=== PATIENT | female | born 1940 | race Caucasian/White ===

== ENCOUNTER 2017-04-01 11:45 | Outpatient (CLI) | payer MEDICARE, OTHER ==
--- NOTE | 2017-04-02 13:17 | Mammography Report ---
DIGITAL SCREENING MAMMOGRAM: 04/01/2017 CLINICAL INDICATION: A 77-year-old for screening. COMPARISON: 02/2016, 02/2015, 01/2014, 12/2012, 10/2011, 10/2010, 10/2009 TECHNIQUE: Routine CC and MLO projections were obtained of the breasts. FINDINGS: Parenchymal tissue within both breasts is heterogeneously dense, which may lower the sensi tivity of mammography; however, there are no dominant masses, suspicious microcalcifications, or seco ndary signs of malignancy. In comparison to the previous studies, there are no significant changes. ASSESSMENT: NO MAMMOGRAPHIC EVIDENCE OF MALIGNANCY. NO SIGNIFICANT INTERVAL CHANGES. RECOMMENDATION: Screening mammography is recommended annually. BIRADS category 1 - negative. STANDARD QUALIFYING STATEMENTS 1. This examination was reviewed with the aid of Computed-Aided Detection (CAD). 2. A negative or benign imaging report should not delay biopsy if clinically suspicious findings are present. Consider surgical consultation if warranted. More than 5% of cancers are not identified by i maging. 3. Dense breasts may obscure an underlying neoplasm. JOB #: [id number] EXT JOB #:[id number]
== END 2017-04-01 11:46 | disposition home or self-care (01) ==
LOC: DI.S 11:45
PROVIDERS: ATTEND Physician Assistant Medical
DX: Z12.31 Encounter for screening mammogram for malignant neoplasm of breast (principal)
CPT/HCPCS: 77067

== ENCOUNTER 2017-05-06 07:38 | Outpatient (CLI) | payer MEDICARE, OTHER ==
[2017-05-06 12:22] LABS: BASOPHILS % (AUTO) 0.6 %; EOSINOPHILS # (AUTO) 0.3 10^3/uL (0.0-0.7); EOSINOPHILS % (AUTO) 5.8 %; HCT - HEMATOCRIT 43.8 % (37.0-47.0); HGB - HEMOGLOBIN 14.9 g/dL (12.0-16.0); LYMPHOCYTES # (AUTO) 1.2 10^3/uL (1.5-3.5); LYMPHOCYTES % (AUTO) 24.5 %; MEAN CORPUSCULAR HEMOGLOBIN 32.4 pg (27.0-31.0); MEAN CORPUSCULAR HGB CONC 34.1 g/dL (32.0-36.0); MEAN PLATELET VOLUME 8.4 fL (7.9-10.8); MONOCYTES # (AUTO) 0.4 10^3/uL (0.0-1.0); MONOCYTES % (AUTO) 8.6 %; NEUTROPHILS % (AUTO) 60.5 %; NUCLEATED RED BLOOD CELLS AUTO 0.2 /100WBC; RED CELL DISTRIBUTION WIDTH 12.5 % (12.0-15.0); UNCORRECTED WHITE BLOOD COUNT 4.9 x10^3/uL; WHITE BLOOD COUNT 4.9 x10^3/uL (4.8-10.8)
[2017-05-06 12:39] LABS: BILIRUBIN,URINE NEGATIVE (NEGATIVE)
[2017-05-06 12:48] LABS: ALBUMIN/GLOBULIN RATIO 1.6 (1.0-2.2); BILIRUBIN,TOTAL 0.7 mg/dL (0.2-1.0); BUN - BLOOD UREA NITROGEN 15 mg/dL (6-20); CALCIUM 8.9 mg/dL (8.5-10.3); CARBON DIOXIDE - CO2 30 mmol/L (21-32); CHLORIDE 103 mmol/L (101-111); CHOL/HDL RATIO 2.5 (<4.4); CHOLESTEROL 180 mg/dL; CREATININE 0.7 mg/dL (0.4-1.0); GFR - MDRD 81 (>89); GLUCOSE 80 mg/dL (70-100); HDL CHOLESTEROL 71 mg/dL; LDL/HDL RATIO 1.4 (<4.4); POTASSIUM 4.1 mmol/L (3.5-5.0); SODIUM 139 mmol/L (135-145); TOTAL PROTEIN 6.5 g/dL (6.7-8.2); TRIGLYCERIDES 47 mg/dL; VLDL CHOLESTEROL 9 mg/dL
[2017-05-06 12:50] LABS: UR CULTURE IF IND NOT INDICATED
== END 2017-05-06 07:39 | disposition home or self-care (01) ==
LOC: LAB.F 07:38
PROVIDERS: ATTEND Physician Assistant Medical
DX: Z51.81 Encounter for therapeutic drug level monitoring (principal); R35.1 Nocturia; E78.5 Hyperlipidemia, unspecified; E55.9 Vitamin D deficiency, unspecified
CPT/HCPCS: 36415; 80053; 80061; 81001; 82306; 85025; 87086

== ENCOUNTER 2017-05-13 08:31 | Outpatient (CLI) | payer MEDICARE, OTHER ==
--- NOTE | 2017-05-13 13:06 | DEXA Report ---
DEXA SCAN: 05/13/2017 CLINICAL INDICATION: Postmenopausal. TECHNIQUE: Dual energy x-ray absorptiometry (DXA) was performed on a [employer] system. Regions measured are the AP spine, femoral neck, and, if needed, forearm. COMPARISON: None. In accordance with the International Society for Clinical Densitometry (ISCD) guidelines, data from previous exams may be reanalyzed using current recommendations and techniques. This is done to allow a more accurate basis for comparison with the current study. FINDINGS The data for the lumbar spine is as follows: REGION BMD (g/cm/cm) T-SCORE Z-SCORE L1 1.006 -1.0 1.0 L2 0.997 -1.7 0.4 L3 0.910 -2.4 -0.4 L4 1.051 -1.2 0.8 TOTAL 0.989 -1.6 0.5 NOTE: All evaluable vertebrae are used for classification. The data for the hip is as follows: REGION BMD (g/cm/cm) T-SCORE Z-SCORE Neck 0.666 -2.7 -0.5 TOTAL 0.698 -2.5 -0.4 NOTE: The femoral neck or total proximal femur, whichever is lowest, is used for classification. IMPRESSION: THE WHO CLASSIFICATION BASED ON THE INTERNATIONAL REFERENCE STANDARD IS OSTEOPOROSIS. THE FRACTURE RISK IS HIGH. RECOMMENDATION: Patients with diagnosis of osteoporosis or osteopenia should have regular bone mineral density assessment. For those eligible for Medicare, routine testing is allowed once every 2 years. Testing frequency can be increased for patients who have rapidly progressing disease or for those who are receiving medical therapy to restore bone mass. COMMENT: World Health Organization (WHO) definitions for osteoporosis and osteopenia: NORMAL BMD: T-score at -1.0 or higher, fracture risk is low. OSTEOPENIA BMD: T-score between -1.0 and -2.5, fracture risk is increased. OSTEOPOROSIS BMD: T-score at -2.5 or lower, fracture risk high. National Osteoporosis Foundation recommends: 1. Obtain adequate dietary calcium (at least 1200 mg per day) and vitamin D (400 -800 international units per day). 2. Participate, as appropriate, in regular weightbearing and muscle- strengthening exercise. 3. Avoid tobacco use and reduce alcohol and caffeine intake. 4. For more detailed information see the website at www.NOF.org. MTDD
== END 2017-05-13 08:32 | disposition home or self-care (01) ==
LOC: DI 08:31
PROVIDERS: ATTEND Physician Assistant Medical
DX: M81.0 Age-related osteoporosis without current pathological fracture (principal)
CPT/HCPCS: 77080

== ENCOUNTER 2017-05-13 13:04 | Emergency (ER) | payer MEDICARE, OTHER ==
[2017-05-13 13:47] LABS: BASOPHILS % (AUTO) 0.3 %; EOSINOPHILS # (AUTO) 0.1 10^3/uL (0.0-0.7); EOSINOPHILS % (AUTO) 1.8 %; HCT - HEMATOCRIT 45.4 % (37.0-47.0); HGB - HEMOGLOBIN 15.3 g/dL (12.0-16.0); LYMPHOCYTES # (AUTO) 1.2 10^3/uL (1.5-3.5); LYMPHOCYTES % (AUTO) 17.2 %; MEAN CORPUSCULAR HEMOGLOBIN 32.1 pg (27.0-31.0); MEAN CORPUSCULAR HGB CONC 33.7 g/dL (32.0-36.0); MEAN CORPUSCULAR VOLUME 95.2 fL (81.0-99.0); MONOCYTES # (AUTO) 0.4 10^3/uL (0.0-1.0); MONOCYTES % (AUTO) 5.6 %; NEUTROPHILS # (AUTO) 5.4 10^3/uL (1.5-6.6); NEUTROPHILS % (AUTO) 75.1 %; RED BLOOD COUNT 4.77 10^6/uL (4.20-5.40); RED CELL DISTRIBUTION WIDTH 12.6 % (12.0-15.0); UNCORRECTED WHITE BLOOD COUNT 7.1 x10^3/uL; WHITE BLOOD COUNT 7.1 x10^3/uL (4.8-10.8)
[2017-05-13] MEDS ORDERED: METOPROLOL 5 MG/5 ML VIAL IVP STA (13:53)
[2017-05-13 14:00] LABS: ALBUMIN/GLOBULIN RATIO 1.9 (1.0-2.2); BILIRUBIN,TOTAL 0.8 mg/dL (0.2-1.0); CALCIUM 9.4 mg/dL (8.5-10.3); CREATININE 0.9 mg/dL (0.4-1.0); POTASSIUM 3.3 mmol/L (3.5-5.0); TOTAL PROTEIN 6.7 g/dL (6.7-8.2)
--- NOTE | 2017-05-13 14:00 | ED Physician Documentation ---
PD HPI CHEST PAIN - Stated complaint Stated Complaint: CHEST TIGHTNESS/DIZZY - Chief complaint Chief Complaint: Cardiac - History obtained from History obtained from: Patient - History of Present Illness Timing - onset: Other (77-year-old woman was at [employer] today walking hard when she developed central nonradiating chest tightness with presyncope but no shortness of breath, nausea, or sweats. It lasted for about 45 minutes and now feels better. No heart history. No recent travel, no dyspnea, no pedal edema or calf pain.) Review of Systems Constitutional: denies: Fever, Chills Throat: denies: Dental pain / toothache, Sore throat Cardiac: denies: Palpitations, Pedal edema, Calf pain Respiratory: denies: Dyspnea, Cough, Hemoptysis, Wheezing PD PAST MEDICAL HISTORY - Present Medications Home Medications: Ambulatory Orders Medication Instructions Recorded Confirmed Acetaminophen [Tylenol Extra 1,000 mg PO DAILY 05/13/17 05/13/17 Strength] Atorvastatin [Lipitor] 20 mg PO DAILY 05/13/17 05/13/17 HYDROcod/ACETAM 5/325 [[place] 5/325] 05/13/17 Ibuprofen [Advil] 400 mg PO DAILY 05/13/17 05/13/17 - Allergies Allergies/Adverse Reactions: Allergies Allergy/AdvReac Type Severity Reaction Status Date / Time No Known Drug Allergies Allergy Verified 05/13/17 13:21 PD ED PE NORMAL - Vitals Vital signs reviewed: Yes - General General: Alert and oriented X 3, No acute distress - Cardiac Cardiac: RRR, No murmur, Other (On my examination she has a regular rate and rhythm despite being in atrial fibrillation on the EKG, this is converted to sinus borderline tachycardia with about 105 rate spontaneously.) - Respiratory Respiratory: No respiratory distress, Clear bilaterally - Abdomen Abdomen: Normal bowel sounds, Soft, Non tender - Extremities Extremities: No edema, No calf tenderness / cord - Neuro Neuro: Alert and oriented X 3, Normal speech - Psych Psych: Normal mood, Normal affect Results - Vitals Vitals: Vital Signs - 24 hr 05/13/17 05/13/17 05/13/17 13:11 14:10 14:51 Temperature 36.3 C L Heart Rate 100 80 81 Respiratory 16 20 14 Rate Blood Pressure 142/80 H 103/69 125/75 O2 Saturation 99 97 100 05/13/17 15:03 Temperature Heart Rate 81 Respiratory 18 Rate Blood Pressure 126/75 O2 Saturation 100 Oxygen O2 Source Room air - EKG (time done) 1334 Rate: Rate (enter#) (127) Rhythm: Atrial fibrillation Intervals: RBBB Ischemia: Non specific changes Compare to prior EKG: Old EKG unavailable Computer interpretation: Agree with computer 1405 Rate: Rate (enter#) (83) Rhythm: NSR Intervals: Prolonged OR, RBBB, LBBB (LAFB) Ischemia: No: ST elevation c/w ischemia Computer interpretation: Agree with computer - Labs Labs: Laboratory Tests 05/13/17 05/13/17 05/13/17 13:38 13:38 13:38 WBC 7.1 RBC 4.77 Hgb 15.3 Hct 45.4 MCV 95.2 MCH 32.1 H MCHC 33.7 RDW 12.6 Plt Count 222 MPV 8.0 Neut # 5.4 Lymph # 1.2 L [place] # 0.4 Eos # 0.1 Baso # 0.0 Absolute Nucleated RBC 0.00 Nucleated RBC % 0.0 Sodium 140 Potassium 3.3 L Chloride 104 Carbon Dioxide 23 Anion Gap 13.0 BUN 19 Creatinine 0.9 Estimated GFR (MDRD) 61 L Glucose 150 H Calcium 9.4 Magnesium 2.2 Total Bilirubin 0.8 AST 35 ALT 23 Alkaline Phosphatase 59 Troponin I Total Protein 6.7 Albumin 4.4 Globulin 2.3 Albumin/Globulin Ratio 1.9 Lipase 36 TSH 05/13/17 05/13/17 13:38 13:38 WBC RBC Hgb Hct MCV MCH MCHC RDW Plt Count MPV Neut # Lymph # [place] # Eos # Baso # Absolute Nucleated RBC Nucleated RBC % Sodium Potassium Chloride Carbon Dioxide Anion Gap BUN Creatinine Estimated GFR (MDRD) Glucose Calcium Magnesium Total Bilirubin AST ALT Alkaline Phosphatase Troponin I < 0.04 Total Protein Albumin Globulin Albumin/Globulin Ratio Lipase TSH 1.51 PD MEDICAL DECISION MAKING - ED course ED course: 77-year-old woman with atrial fibrillation episode causing chest tightness and dizziness which has resolved. Repeat EKG shows sinus rhythm, she was modestly tachycardic, she was administered 5 mg of Lopressor IV and her heart rate was about 80. DVT/PE was considered, but given alternative diagnosis of intermittent atrial fibrillation and lack of dyspnea this is very unlikely. Potassium was repleted orally. Departure - Departure Disposition: 01 Home, Self Care Clinical Impression: Atrial fibrillation Qualifiers: Atrial fibrillation type: paroxysmal Qualified Code(s): I48.0 - Paroxysmal atrial fibrillation Condition: Good Record reviewed to determine appropriate education?: Yes Instructions: Atrial Fibrillation Dc Comments: Follow-up with your physician for further evaluation and treatment, return if worse. Take a baby aspirin a day until you follow-up with your physician. Discharge Date/Time: 05/13/17 15:07
[2017-05-13] MEDS ORDERED: METOPROLOL 5 MG/5 ML VIAL IVP ONE (14:02)
[2017-05-13] MEDS ORDERED: POTASSIUM BICARB 25 MEQ TABLET PO STA (14:34)
[2017-05-13] MEDS ORDERED: POTASSIUM BICARB 25 MEQ TABLET PO ONE (14:49)
[2017-05-13 15:04] VITALS: BP 126/75
== END 2017-05-13 15:07 | disposition home or self-care (01) ==
LOC: ED 13:04
DX: I48.0 Paroxysmal atrial fibrillation (principal); I45.2 Bifascicular block
CPT/HCPCS: 36415; 80053; 83690; 83735; 84443; 84484; 85025; 93005; 96374; 99284; A9270; 77080

== ENCOUNTER 2018-01-02 09:59 | Emergency (ER) | payer MEDICARE, OTHER ==
[2018-01-02 10:12] VITALS: BP 144/74
--- NOTE | 2018-01-02 11:07 | XRAY Preliminary Report ---
Exam: XR TOE(S) LT IMPRESSION: 1. No acute osseous abnormality. 2. Mild DJD. Osteopenia. [facility] SITE ID: [id number]
--- NOTE | 2018-01-02 11:07 | XRAY Report ---
EXAM: LEFT TOE RADIOGRAPHY EXAM DATE: 01/02/2018 10:38 AM. CLINICAL HISTORY: Trauma. COMPARISON: None. TECHNIQUE: 3 views. FINDINGS: Bones: No fractures or bone lesions. Bones appear osteopenic. Joints: Mild DJD at the small joints of the foot. Soft Tissues: Unremarkable. IMPRESSION: 1. No acute osseous abnormality. 2. Mild DJD. Osteopenia. [facility] Referring Provider Line: [phone] SITE ID: [id number]
--- NOTE | 2018-01-02 11:16 | ED Physician Documentation ---
PD HPI LOWER EXT INJURY - Stated complaint Stated Complaint: L FOOT INJ - Chief complaint Chief Complaint: Ext Problem - History obtained from History obtained from: Patient - History of Present Illness PD HPI LOW EXT INJURY LOCATION: Left, Toe (middle) Type of injury: Blunt / blow Where injury occurred: Home Timing - onset: How many weeks ago (1) Timing - duration: Weeks (1) Timing - details: Abrupt onset, Still present Improved by: Rest, Ice, Immobilization Worsened by: Moving, Palpating Associated symptoms: Swelling, Discolored Contributing factors: No: Anticoagulated Similar symptoms before: Has not had sx before Recently seen: Not recently seen - Additional information Additional information: 77-year-old female stubbed her toe one week ago she had a lot of swelling and pain associated with this and she has been able to walk on it she continues to have pain and now she is worried that maybe there is a fracture there. She was expecting the pain to be resolved by now. Review of Systems Constitutional: denies: Fever Respiratory: denies: Cough GI: denies: Vomiting Musculoskeletal: reports: Joint pain, Pain with weight bearing Neurologic: denies: Generalized weakness, Focal weakness, Numbness PD PAST MEDICAL HISTORY - Past Medical History Cardiovascular: High cholesterol - Present Medications Home Medications: Ambulatory Orders Medication Instructions Recorded Confirmed Acetaminophen [Tylenol Extra 1,000 mg PO DAILY 05/13/17 05/13/17 Strength] Atorvastatin [Lipitor] 20 mg PO DAILY 05/13/17 05/13/17 HYDROcod/ACETAM 5/325 [[place] 5/325] 05/13/17 Aspirin 81 mg PO 01/02/18 Baclofen 10 mg PO 01/02/18 Melatonin 3 mg PO 01/02/18 Meriva 500 01/02/18 Multivitamin [Multivitamins] 1 each PO 01/02/18 Oxybutynin [Ditropan] 5 mg PO BID 01/02/18 01/02/18 - Allergies Allergies/Adverse Reactions: Allergies Allergy/AdvReac Type Severity Reaction Status Date / Time Sulfa (Sulfonamide Allergy Nausea Verified 01/02/18 10:13 Antibiotics) - Social History Does the pt smoke?: No Smoking Status: Never smoker PD ED PE NORMAL - Vitals Vital signs reviewed: Yes (normal ) - General General: Alert and oriented X 3, No acute distress, Well developed/nourished - HEENT HEENT: Atraumatic, PERRL, EOMI - Neck Neck: Supple, no meningeal sign - Respiratory Respiratory: No respiratory distress - Derm Derm: Normal color, Warm and dry, No rash - Extremities Extremities: Other (there is ecchymosis to the 3rd toe on the left foot this extends to the dorsum of the foot. There is corresponding tenderness and no crepitance. distal n/v is intact. ) - Neuro Neuro: No motor deficit, No sensory deficit Eye Opening: Spontaneous Motor: Obeys Commands Verbal: Oriented GCS Score: 15 - Psych Psych: Normal mood, Normal affect Results - Vitals Vitals: Vital Signs - 24 hr 01/02/18 10:10 Temperature 36.3 C L Heart Rate 65 Respiratory 18 Rate Blood Pressure 144/74 H O2 Saturation 99 Oxygen O2 Source Room air - Rads (name of study) toes Radiology: Prelim report reviewed (Impression: 1. No acute osseous abnormality 2. mild DJD, osteopenia.), EMP read indepedently, See rad report PD MEDICAL DECISION MAKING - ED course Complexity details: reviewed results, re-evaluated patient, considered differential, d/w patient, d/w family ED course: 77-year-old female who stubbed her toe still has pain is concerned about a fracture satisfied that she does not have a fracture after reviewing her films. She states that she feels that she can walk on this adequately and that she does not need pain medication. Departure - Departure Disposition: 01 Home, Self Care Clinical Impression: Toe contusion Qualifiers: Encounter type: initial encounter Toe: lesser toe Damage to nail status: without damage Laterality: left Qualified Code(s): S90.122A - Contusion of left lesser toe(s) without damage to nail, initial encounter Condition: Stable Instructions: ED Contusion Foot Follow-Up: Paulina Vance PA-C [Primary Care Provider] - Discharge Date/Time: 01/02/18 11:27
== END 2018-01-02 11:27 | disposition home or self-care (01) ==
LOC: ED 09:59
DX: S90.122A Contusion of left lesser toe(s) without damage to nail, initial encounter (principal); W22.03XA Walked into furniture, initial encounter; Y92.009 Unspecified place in unspecified non-institutional (private) residence as the place of occurrence of the external cause; E78.00 Pure hypercholesterolemia, unspecified
CPT/HCPCS: 73660; 99282

== ENCOUNTER 2018-01-11 07:22 | Outpatient (CLI) | payer MEDICARE, OTHER ==
[2018-01-11 11:52] LABS: BASOPHILS % (AUTO) 1.1 %; EOSINOPHILS # (AUTO) 0.2 10^3/uL (0.0-0.7); EOSINOPHILS % (AUTO) 5.2 %; HGB - HEMOGLOBIN 14.4 g/dL (12.0-16.0); LYMPHOCYTES # (AUTO) 0.9 10^3/uL (1.5-3.5); LYMPHOCYTES % (AUTO) 20.3 %; MEAN CORPUSCULAR HEMOGLOBIN 33.3 pg (27.0-31.0); MEAN CORPUSCULAR HGB CONC 34.3 g/dL (32.0-36.0); MEAN CORPUSCULAR VOLUME 97.3 fL (81.0-99.0); MEAN PLATELET VOLUME 8.9 fL (7.9-10.8); MONOCYTES # (AUTO) 0.4 10^3/uL (0.0-1.0); MONOCYTES % (AUTO) 9.9 %; NEUTROPHILS # (AUTO) 2.7 10^3/uL (1.5-6.6); NEUTROPHILS % (AUTO) 63.5 %; PLT - PLATELET COUNT 207 10^3/uL (130-450); RED BLOOD COUNT 4.32 10^6/uL (4.20-5.40); RED CELL DISTRIBUTION WIDTH 12.6 % (12.0-15.0); WHITE BLOOD COUNT 4.3 x10^3/uL (4.8-10.8)
[2018-01-11 12:07] LABS: ALBUMIN 3.6 g/dL (3.2-5.5); ALBUMIN/GLOBULIN RATIO 1.5 (1.0-2.2); ALKALINE PHOSPHATASE 51 IU/L (42-121); ALT ALANINE AMINOTRANSFERASE 21 IU/L (10-60); AST ASPARTATE AMINOTRANSFERASE 26 IU/L (10-42); BILIRUBIN,TOTAL 0.9 mg/dL (0.2-1.0); BUN - BLOOD UREA NITROGEN 19 mg/dL (6-20); CALCIUM 8.6 mg/dL (8.5-10.3); CARBON DIOXIDE - CO2 28 mmol/L (21-32); CHLORIDE 101 mmol/L (101-111); CHOLESTEROL 176 mg/dL; CREATININE 0.7 mg/dL (0.4-1.0); GFR - MDRD 81 (>89); GLUCOSE 82 mg/dL (70-100); HDL CHOLESTEROL 58 mg/dL; LDL CHOLESTEROL,CALCULATED 103 mg/dL; LDL/HDL RATIO 1.8 (<4.4); SODIUM 135 mmol/L (135-145); VLDL CHOLESTEROL 15 mg/dL
== END 2018-01-11 07:23 | disposition home or self-care (01) ==
LOC: LAB.F 07:22
PROVIDERS: ATTEND Physician Assistant Medical
DX: E87.6 Hypokalemia (principal); E78.5 Hyperlipidemia, unspecified; E55.9 Vitamin D deficiency, unspecified; R68.83 Chills (without fever); R53.83 Other fatigue
CPT/HCPCS: 36415; 80053; 80061; 82306; 83721; 84443; 85025

== ENCOUNTER 2018-02-01 15:03 | Outpatient (CLI) | payer MEDICARE, OTHER ==
--- NOTE | 2018-02-01 18:56 | XRAY Report ---
Procedure Date: 02/01/2018 Accession Number: [id number] / [id number] Procedure: XR - Foot 3 View LT CPT Code: FULL RESULT: EXAM: Foot 3 View LT DATE: 02/01/2018 3:47 PM CLINICAL HISTORY: INJURY 3RD TOE LEFT, 3RD MT NECK PAIN LEFT COMPARISON: Left toes 01/02/2018 TECHNIQUE: 3 views. FINDINGS: Bones: There is faint sclerosis across the distal shaft of the proximal phalanx of the third toe, compatible with a healing, nondisplaced fracture. Joints: Mild degenerative changes, stable. Soft Tissues: Normal. No soft tissue swelling. IMPRESSION: Faint sclerosis across the distal end of the proximal phalanx of the third toe, compatible with a healing nondisplaced fracture. [facility]
== END 2018-02-01 15:04 | disposition home or self-care (01) ==
LOC: DI 15:03
PROVIDERS: ATTEND Podiatrist
DX: S99.922A Unspecified injury of left foot, initial encounter (principal)

== ENCOUNTER 2018-06-03 15:16 | Outpatient (CLI) | payer MEDICARE, OTHER ==
[2018-06-03 18:15] LABS: BASOPHILS % (AUTO) 0.5 %; EOSINOPHILS # (AUTO) 0.1 10^3/uL (0.0-0.7); EOSINOPHILS % (AUTO) 1.6 %; HGB - HEMOGLOBIN 14.7 g/dL (12.0-16.0); LYMPHOCYTES # (AUTO) 1.2 10^3/uL (1.5-3.5); LYMPHOCYTES % (AUTO) 20.5 %; MEAN CORPUSCULAR HEMOGLOBIN 33.7 pg (27.0-31.0); MEAN CORPUSCULAR HGB CONC 33.9 g/dL (32.0-36.0); MEAN CORPUSCULAR VOLUME 99.2 fL (81.0-99.0); MEAN PLATELET VOLUME 8.8 fL (7.9-10.8); MONOCYTES # (AUTO) 0.5 10^3/uL (0.0-1.0); MONOCYTES % (AUTO) 8.1 %; NEUTROPHILS % (AUTO) 69.3 %; PLT - PLATELET COUNT 200 10^3/uL (130-450); RED BLOOD COUNT 4.38 10^6/uL (4.20-5.40); RED CELL DISTRIBUTION WIDTH 12.2 % (12.0-15.0); WHITE BLOOD COUNT 5.8 x10^3/uL (4.8-10.8)
== END 2018-06-03 15:17 | disposition home or self-care (01) ==
LOC: LAB.F 15:16
PROVIDERS: ATTEND Physician Assistant Medical
DX: R89.9 Unspecified abnormal finding in specimens from other organs, systems and tissues (principal)
CPT/HCPCS: 36415; 85025

== ENCOUNTER 2018-11-04 07:14 | Outpatient (CLI) | payer MEDICARE, OTHER ==
[2018-11-04 10:47] LABS: CHOL/HDL RATIO 2.7 (<4.4); CHOLESTEROL 174 mg/dL; HDL CHOLESTEROL 65 mg/dL; LDL CHOLESTEROL,CALCULATED 96 mg/dL; LDL/HDL RATIO 1.5 (<4.4); VLDL CHOLESTEROL 13 mg/dL
== END 2018-11-04 07:15 | disposition home or self-care (01) ==
LOC: LAB.F 07:14
PROVIDERS: ATTEND Physician Assistant Medical
DX: E78.5 Hyperlipidemia, unspecified (principal)
CPT/HCPCS: 36415; 80061; 83721

== ENCOUNTER 2019-01-11 07:23 | Outpatient (CLI) | payer MEDICARE, OTHER ==
[2019-01-11 10:16] LABS: BASOPHILS % (AUTO) 0.4 %; EOSINOPHILS # (AUTO) 0.2 10^3/uL (0.0-0.7); EOSINOPHILS % (AUTO) 3.4 %; HGB - HEMOGLOBIN 14.8 g/dL (12.0-16.0); LYMPHOCYTES # (AUTO) 0.9 10^3/uL (1.5-3.5); LYMPHOCYTES % (AUTO) 18.4 %; MEAN CORPUSCULAR HEMOGLOBIN 33.3 pg (27.0-31.0); MEAN CORPUSCULAR HGB CONC 33.8 g/dL (32.0-36.0); MEAN CORPUSCULAR VOLUME 98.4 fL (81.0-99.0); MEAN PLATELET VOLUME 8.8 fL (7.9-10.8); MONOCYTES # (AUTO) 0.4 10^3/uL (0.0-1.0); MONOCYTES % (AUTO) 8.3 %; NEUTROPHILS # (AUTO) 3.4 10^3/uL (1.5-6.6); NEUTROPHILS % (AUTO) 69.5 %; PLT - PLATELET COUNT 188 10^3/uL (130-450); RED BLOOD COUNT 4.45 10^6/uL (4.20-5.40); RED CELL DISTRIBUTION WIDTH 12.5 % (12.0-15.0); WHITE BLOOD COUNT 4.8 x10^3/uL (4.8-10.8)
[2019-01-11 10:24] LABS: ALBUMIN 3.8 g/dL (3.2-5.5); ALBUMIN/GLOBULIN RATIO 1.7 (1.0-2.2); ALKALINE PHOSPHATASE 57 IU/L (42-121); ALT ALANINE AMINOTRANSFERASE 23 IU/L (10-60); AST ASPARTATE AMINOTRANSFERASE 28 IU/L (10-42); BILIRUBIN,TOTAL 0.8 mg/dL (0.2-1.0); BUN - BLOOD UREA NITROGEN 14 mg/dL (6-20); CALCIUM 9.1 mg/dL (8.5-10.3); CARBON DIOXIDE - CO2 28 mmol/L (21-32); CHLORIDE 104 mmol/L (101-111); CHOL/HDL RATIO 2.6 (<4.4); CHOLESTEROL 189 mg/dL; CREATININE 0.7 mg/dL (0.4-1.0); GFR - MDRD 81 (>89); GLUCOSE 90 mg/dL (70-100); HDL CHOLESTEROL 72 mg/dL; LDL CHOLESTEROL,CALCULATED 101 mg/dL; LDL/HDL RATIO 1.4 (<4.4); SODIUM 139 mmol/L (135-145); TOTAL PROTEIN 6.1 g/dL (6.7-8.2); VLDL CHOLESTEROL 16 mg/dL
== END 2019-01-11 07:24 | disposition home or self-care (01) ==
LOC: LAB.F 07:23
PROVIDERS: ATTEND Physician Assistant Medical
DX: E78.5 Hyperlipidemia, unspecified (principal)
CPT/HCPCS: 36415; 80053; 80061; 83721; 85025